=== PATIENT | female | born 1960 | race Caucasian/White ===

== ENCOUNTER 2017-01-26 10:44 | Emergency (ER) | payer OTHER ==
[~2017-01-26] VITALS: Ht 172.7 cm; Wt 60.0 kg
[2017-01-26 10:46] VITALS: BP 108/68
[2017-01-26] MEDS ORDERED: SODIUM CHLORIDE FLUSH 10ML SYR IVF ONE (12:00)
[2017-01-26 12:23] LABS: ASPARTATE AMINO TRANSFERASE 20 U/L (15-37); BLOOD UREA NITROGEN 5 mg/dL (7-18)
[2017-01-26] MEDS ORDERED: GADOBUTROL 7.5 MMOL/7.5 ML PFS ONE (12:59)
== END 2017-01-26 14:31 | disposition home or self-care (01) ==
LOC: ED 11:22
DX: H54.3 Unqualified visual loss, both eyes (principal); Z90.49 Acquired absence of other specified parts of digestive tract; Z90.710 Acquired absence of both cervix and uterus; Z88.0 Allergy status to penicillin; F17.200 Nicotine dependence, unspecified, uncomplicated
CPT/HCPCS: 36415; 70543; 70553; 80053; 85025; 85651; 86038; 86141; 99285; A9585

== ENCOUNTER → 2017-04-01 | Outpatient (CLI) | payer OTHER ==
[~2017-04-01] MED LIST: LIDOCAINE 1%, 20ML ONE
== END | disposition home or self-care (01) ==
LOC: RAD 12:41
PROVIDERS: ATTEND Otolaryngology
DX: E04.1 Nontoxic single thyroid nodule (principal)
CPT/HCPCS: 76942; J3490

== ENCOUNTER → 2017-05-05 | Outpatient (CLI) | payer OTHER ==
[~2017-05-05] MED LIST changes: +CARI350T PO; +GABA300C10 PO; -LIDOCAINE 1%, 20ML ONE
== END ==
LOC: STAR 09:21
PROVIDERS: ATTEND Otolaryngology
DX: Z02.9 Encounter for administrative examinations, unspecified (principal)

== ENCOUNTER 2017-05-20 09:04 | Day surgery (SDC) | payer OTHER ==
[~2017-05-20] VITALS: Ht 172.7 cm; Wt 59.9 kg
[~2017-05-20 09:04] MED LIST changes: +FENTANYL PF 100 MCG/2ML ONE; +MIDAZOLAM 1 MG/ML, 2ML ONE
[2017-05-20] MEDS ORDERED: LACTATED RINGERS 1,000 ML IV SCH (09:23)
[2017-05-20 09:30] VITALS: BP 140/81
[2017-05-20] MEDS ORDERED: BACITRACIN OINT 500U/GM, 15 GM ONE (10:59)
[2017-05-20] MEDS ORDERED: EPINEPHRINE 1 MG/ML, 1ML ONE (10:59)
[2017-05-20] MEDS ORDERED: LIDOCAINE/PF 1%, 30ML ONE (10:59)
[2017-05-20] MEDS ORDERED: HYDROmorphone 1 MG/ML, 1ML IV PRN (11:30)
[2017-05-20] MEDS ORDERED: OXYcodone 5 MG/5 ML ORAL.SOL UDC PO PRN (11:30)
[2017-05-20] MEDS ORDERED: LABETALOL 5MG/ML, 20ML IV PRN (11:30)
[2017-05-20] MEDS ORDERED: MEPERIDINE/PF 25MG/0.5ML IVPush PRN (11:30)
[2017-05-20] MEDS ORDERED: PROMETHAZINE 25 MG/ML, 1ML IV PRN (11:30)
[2017-05-20] MEDS ORDERED: ONDANSETRON 2MG/ML, 2ML IVPush PRN (11:30)
[2017-05-20] MEDS ORDERED: ACETAMINOPHEN 325 MG TABLET PO PRN (11:30)
[2017-05-20] MEDS ORDERED: hydrALAzine 20 MG/ML, 1ML IV PRN (11:30)
[2017-05-20] MEDS ORDERED: FENTANYL PF 100 MCG/2ML ONE (12:00)
[2017-05-20] MEDS: FENTANYL PF 100 MCG/2ML IV PRN ×3 (13:29→13:46)
[2017-05-20] MEDS ORDERED: MEPERIDINE/PF 25MG/0.5ML ONE (13:48)
== END 2017-05-20 16:00 | disposition home or self-care (01) ==
LOC: OR 09:04
PROVIDERS: ATTEND Otolaryngology
DX: E04.1 Nontoxic single thyroid nodule (principal); F17.210 Nicotine dependence, cigarettes, uncomplicated; Z88.0 Allergy status to penicillin; Z88.8 Allergy status to other drugs, medicaments and biological substances; Z91.048 Other nonmedicinal substance allergy status
CPT/HCPCS: 60220; 88307; 88331; J0171; J2175; J2250; J3010; J3490; J7120; 88334; J0690; J1100; J2405; J2704; C1760; J0330